=== PATIENT | female | born 1965 | race Caucasian/White ===

== ENCOUNTER 2017-09-10 11:59 | Inpatient (IN) | payer OTHER ==
[~2017-09-10] VITALS: Ht 162.6 cm; Wt 90.7 kg
[~2017-09-10 11:59] MED LIST: ADVAIR 250-501 EACH INH; ESTRADIOL0.5 M1 PO; LEVOTHYROXINE112 MCG PO; MEDROL4 M2 PO; NEXIUM20 M1 PO; PERCOCET 5-3251 EACH PO; PROAIR HFA8.5 GM INH; VALIUM5 M2 PO; ZANTAC 7575 M1 PO
--- NOTE | 2017-09-10 12:33 | ED SKIN/ALLERGY COMPLAINT ---
History of Present Illness General Chief Complaint: Eye Problems Stated Complaint: L EYE SWELLING Source: patient, old records Exam Limitations: no limitations Vital Signs & Intake/Output Vital Signs & Intake/Output Vital Signs Date Time Temp Pulse Resp B/P B/P Pulse O2 O2 Flow FiO2 Mean Ox Delivery Rate 09/10 1458 98.0 58 15 125/75 98 Room Air Room Air 09/10 1218 98.0 79 18 131/84 98 Room Air Allergies Coded Allergies: ammonia (SOB 12/09/16) meperidine (From DEMEROL) (N/V 12/09/16) Reconcile Medications Albuterol Sulfate (Proair Hfa) 90 MCG HFA.AER.AD 2 PUF INH AD PRN ASTHMA ( Reported) Diazepam (Valium) 5 MG TABLET 1 TAB PO Q6P PRN PAIN Esomeprazole Magnesium (Nexium) 20 MG CAPSULE.DR 1 CAP PO DAILY GI (Reported) Estradiol 0.5 MG TABLET 1 TAB PO DAILY HRT (Reported) Fluticasone/Salmeterol (Advair 250-50 Diskus) 250 MCG-50 MCG/DOSE BLST.W.DEV 1 PUF INH DAILY ASTHMA (Reported) Levothyroxine Sodium 112 MCG TABLET 1 TAB PO DAILY THYROID (Reported) Methylprednisolone. (Medrol) 4 MG TAB.DS.PK 1 DP PO AD NEUROPATHIC PAIN 6 on day 1 then reduce by one tablet daily until gone Oxycodone HCl/Acetaminophen (Percocet 5-325 MG Tablet) 5 MG-325 MG TABLET 1-2 TAB PO Q6P PRN PAIN Ranitidine HCl (Zantac 75) 75 MG TABLET 1 TAB PO PRN GI (Reported) Triage Note: MONDAY PT NOTICED A SPOT ON LEFT CHEEK MONDAY WITH CLEAR DRAINAGE. STARTED CLINDA 300MG QID SINCE THEN AND NOW SWELLING IS INCREASING AND CLOSE TO EYE. DENIES CHANGE IN VISION OR HEADACHE. ?PERIORBITAL ABSCESS VS CELLULITIS. EOM INTACT. TENDER TO PALPATION. MD HERNANDEZ CALLED TO TRIAGE FOR ASSESSMENT Triage Nurses Notes Reviewed? yes HPI: 51F PMH asthma, hypothyroidism with left maxillary swelling and erythema for the past 2 days, went to her PCP, has been taking Clindamycin 300mg q8h since the morning of 09/08. Since then, her facial erythema, swelling, and tenderness has worsened and it has creeped toward her left eye. She denies fever, chills, headache, neck stiffness, nausea, vomiting, vision changes, blurry vision, pain with moving her eye, ear pain, chest pain, SOB, abdominal pain. She feels well otherwise ans has no complaints. She initially noticed clear discharge with crusting of the area, no evidence of purulence. No traumatic injury or foreign object. NO similar symptoms before, though she has had zoster of her face and abdomen. Past History Travel History Traveled to [place] past 21 day No Medical History Any Pertinent Medical History? see below for history Neurological: NONE EENT: NONE Cardiovascular: NONE Respiratory: asthma Gastrointestinal: GERD, HIATAL HERNIA Hepatic: NONE Renal: NONE Musculoskeletal: NONE Psychiatric: NONE Endocrine: HYPOTHYROIDISM THYROIDECTOMY Blood Disorders: NONE Cancer(s): NONE Surgical History Surgical History: hysterectomy, Thyroidectomy Tonsilectomy Psychosocial History What is your primary language Yi Tobacco Use: Never used Family History Hx Contributory? No Review of Systems Review of Systems Constitutional: Reports: no symptoms. EENTM: Reports: no symptoms. Respiratory: Reports: no symptoms. Cardiovascular: Reports: no symptoms. GI: Reports: no symptoms. Genitourinary: Reports: no symptoms. Musculoskeletal: Reports: no symptoms. Skin: Reports: no symptoms. Neurological/Psychological: Reports: no symptoms. Hematologic/Endocrine: Reports: no symptoms. Immunologic/Allergic: Reports: no symptoms. All Other Systems: Reviewed and Negative Physical Exam Physical Exam General Appearance: well developed/nourished, no apparent distress Head: atraumatic, normal appearance Eyes: Bilateral: normal appearance, PERRL, EOMI. Ears, Nose, Throat: normal pharynx, hearing grossly normal Neck: normal inspection, supple, full range of motion Respiratory: normal breath sounds Cardiovascular: regular rate/rhythm Gastrointestinal: soft, non-tender Back: normal inspection, normal range of motion Extremities: normal inspection, normal range of motion Neurologic/Psych: awake, alert, oriented x 3, normal mood/affect Skin: left maxillary erythema and swelling with tendernes, no fluctuance Lymphatic: positive left anterior cervical and pre-auricular lymphadenopathy Progress Differential Diagnosis: abscess/cellulitis, allergic reaction, angioedema, contact dermatitis, drug reaction, lyme disease, shingles Plan of Care: Orders Procedure Date/time Status Regular Diet 09/10 D Active BLOOD CULTURE 09/10 1239 Active COMPREHENSIVE METABOLIC PANEL 09/10 1239 Complete CBC WITHOUT DIFFERENTIAL 09/10 1239 Complete Laboratory Tests 09/10/17 1423: Anion Gap 12, Estimated GFR > 60, BUN/Creatinine Ratio 20.0, Glucose 99, Calcium 10.2, Total Bilirubin 0.5, AST 18, ALT 30, Alkaline Phosphatase 101, Total Protein 8.1, Albumin 4.2, Globulin 3.9, Albumin/Globulin Ratio 1.1 09/10/17 1305: CBC w Diff NO MAN DIFF REQ, RBC 5.05, MCV 85.3, MCH 28.6, MCHC 33.5, RDW 15.5 H , MPV 8.1, Gran % 46.4, Lymphocytes % 33.5, Monocytes % 10.2 H, Eosinophils % 8.6 H, Basophils % 1.3, Absolute Granulocytes 2.7, Absolute Lymphocytes 1.9, Absolute Monocytes 0.6, Absolute Eosinophils 0.5, Absolute Basophils 0.1 Microbiology 09/10 1320 BLOOD: Blood Culture - RECD 09/10 1305 BLOOD: Blood Culture - RECD Departure Departure Disposition: STILL A PATIENT Condition: Stable Clinical Impression Primary Impression: Periorbital cellulitis of left eye Secondary Impressions: Failure of outpatient treatment Referrals: Diya SEAY,Anika (PCP/Family) Departure Forms: Customer Survey General Discharge Information Admission Note Spoke With: Torrie SEAY,Renetta Soriano Documentation of Exam: Documentation of any treatments & extenuating circumstances including Concerns Regarding Discharge (functional status, medication knowledge or non-compliance, living conditions, etc.) that warrant an admission rather than observation: julia -orbital cellulitis that failed outpatient Clindamycin, will require inpatient medicine stay for IV antibiotics, cultures, infectious disease and likely ophthalmology consult.
[2017-09-10 13:17] LABS: ABSOLUTE BASOPHIL COUNT 0.1 /CUMM (0.0-0.2); ABSOLUTE EOSINOPHIL COUNT 0.5 /CUMM (0.0-0.7); ABSOLUTE GRANULOCYTE CT 2.7 /CUMM (1.4-6.5); ABSOLUTE LYMPH COUNT 1.9 /CUMM (1.2-3.4); ABSOLUTE MONOCYTE COUNT 0.6 /CUMM (0.10-0.60); BASOPHIL % 1.3 % (0.0-2.0); EOSINOPHIL % 8.6 % (0-5); GRANULOCYTE % 46.4 % (42.2-75.2); HEMATOCRIT 43.1 % (37-47); MEAN CORPUSCULAR HGB 28.6 PG (27.0-31.0); MEAN CORPUSCULAR HGB CONC 33.5 G/DL (33.0-37.0); MEAN CORPUSCULAR VOLUME 85.3 FL (81.0-99.0); MEAN PLATELET VOLUME 8.1 FL (7.4-10.4); PLATELET COUNT 315 /CUMM (130-400); RBC DISTRIBUTION WIDTH 15.5 % (11.5-14.5); RED BLOOD CELL CT 5.05 /CUMM (4.20-5.40); WHITE BLOOD CELL COUNT 5.7 /CUMM (4.8-10.8)
[2017-09-10] MEDS ORDERED: VITAMIN D2000 UNIT PO (15:56)
[2017-09-10] MEDS ORDERED: MULTIVITAMINS1 EAC9 PO (15:56)
--- NOTE | 2017-09-10 16:29 | History & Physical ---
Ricco SEAY,Kirsten 09/10/17 2145: General Information and HPI MD Statement: I have seen and personally examined ILAN SOLANO and documented this H&P. The patient is a 51 year old F who presented with a patient stated chief complaint of [left sided infraorbital cellulitis]. Source of Information: patient Exam Limitations: no limitations History of Present Illness: Patient is a 51-year-old female with past medical history of hypothyroidism status post thyroidectomy (1991, 1997 ), mild persistent asthma, hypovitaminosis D, history of hysterectomy currently having menopausal symptomS including depression, anxiety, hot flashes presented with chief complaints of redness and swelling and left-sided preorbital area since 2 days. According to her she had an episode of diarrhea secondary to food poisoning since last Monday from which she recovered on monday without any antibiotic.She was completely all right on Monday, and she walked/had outing with her dog. On she felt a small blister on the left side of the cheek below the eye, which got ruptured with drainage of clear fluid. Later on she started having swelling redness and tenderness on the left cheek. So she called MD trejo, and was advised to take tablet clindamycin 300 mg every 6. Her swelling did not improved despite of antibiotic and today in the morning she felt that her swelling got worse. Today she again called MD trejo, and was advised to go to ED for further evaluation and management including IV antibiotic. She denies trauma, scratching, spider bite, any application of new facial ointment, removal of hair, fall, narrowing of the lesion, pain while movement of the eye, ear pain. Allergies-Demerol/ammonia leading to severe anaphylactic reaction Personal history-lives with her boyfriend and son, have 1 dog and 2 cats, denies smoking, drink alcohol socially. Family history Father-diabetes, Alzheimer's disease, hypertension, stroke, seizures in the age of 60s Mother-healthy Surgical history- Hysterectomy at the age of 39 secondary to fibroid and bleeding Thyroidectomy-twice() Tonsillectomy is denies Allergies/Medications Allergies: Coded Allergies: ammonia (SOB 12/09/16) meperidine (From DEMEROL) (N/V 12/09/16) Past History Travel History Traveled to [place] past 21 day No Medical History Neurological: NONE EENT: NONE Cardiovascular: NONE Respiratory: asthma Gastrointestinal: GERD, HIATAL HERNIA Hepatic: NONE Renal: NONE Musculoskeletal: NONE Psychiatric: NONE Endocrine: HYPOTHYROIDISM THYROIDECTOMY Blood Disorders: NONE Cancer(s): NONE Surgical History Surgical History: hysterectomy, Thyroidectomy Tonsilectomy Past Family/Social History Family History Relations & Conditions if any FATHER, . Diabetes mellitus (DM) FH: Alzheimers disease FH: HTN (hypertension) MOTHER FATHER Relation not specified for: *No pertinent family history Review of Systems Review of Systems Constitutional: Denies: no symptoms, chills, fever, malaise, weakness. EENTM: Denies: no symptoms, blurred vision, double vision, visual changes, eye pain, eye drainage, eye tearing, ear discharge, ear pain, ear redness, hearing changes. Exam & Diagnostic Data Last 24 Hrs of Vital Signs/I&O Vital Signs Date Time Temp Pulse Resp B/P B/P Pulse O2 O2 Flow FiO2 Mean Ox Delivery Rate 09/10 2124 98.1 56 20 153/65 96 Room Air 09/10 1721 98.2 63 20 158/78 97 Room Air 09/10 1458 98.0 58 15 125/75 98 Room Air Room Air 09/10 1218 98.0 79 18 131/84 98 Room Air Physical Exam General Appearance Alert, Oriented X3, Cooperative, No Acute Distress Skin left upper part of cheek, redness, swelling, tender, a center part was hyperpigmented, regional lymphadenopathy in left submandibular area, HEENT Atraumatic, PERRLA, EOMI Neck Supple, No JVD Cardiovascular Normal S1, Normal S2, No Murmurs Lungs Clear to Auscultation, Normal Air Movement Abdomen Soft, No Tenderness Neurological Normal Speech Extremities No Clubbing, No Cyanosis, No Edema Vascular Normal Pulses, Pulses Symmetrical Last 24 Hrs of Labs/[place]: Laboratory Tests 09/10/17 1423: Anion Gap 12, Estimated GFR > 60, BUN/Creatinine Ratio 20.0, Glucose 99, Calcium 10.2, Total Bilirubin 0.5, AST 18, ALT 30, Alkaline Phosphatase 101, Total Protein 8.1, Albumin 4.2, Globulin 3.9, Albumin/Globulin Ratio 1.1 09/10/17 1305: CBC w Diff NO MAN DIFF REQ, RBC 5.05, MCV 85.3, MCH 28.6, MCHC 33.5, RDW 15.5 H , MPV 8.1, Gran % 46.4, Lymphocytes % 33.5, Monocytes % 10.2 H, Eosinophils % 8.6 H, Basophils % 1.3, Absolute Granulocytes 2.7, Absolute Lymphocytes 1.9, Absolute Monocytes 0.6, Absolute Eosinophils 0.5, Absolute Basophils 0.1 Microbiology 09/10 1320 BLOOD: Blood Culture - RECD 09/10 1305 BLOOD: Blood Culture - RECD Diagnostic Data EKG Results Not done CXR Results Not done Assessment/Plan Assessment: Patient is a 51-year-old female with past medical history of hypothyroidism status post thyroidectomy (1991, 1997 ), mild persistent asthma, hypovitaminosis D, history of hysterectomy currently having menopausal symptomS including depression, anxiety, hot flashes presented with chief complaints of redness and swelling and left-sided preorbital area since 2 days. ED course - Vital signs -temperature 98.0, pulse 79, respiratory 18, blood pressure 139/84, SPO2 98% on room air. Blood workup showed -WBC 5.7, hemoglobin 14.4, hematocrit 43.7, platelet count 315, granulocyte 46.4, monocytes 10.2, eosinophils 8.6, serum sodium 144, potassium 4.3, chloride 104, carbon dioxide 28, anion gap 12, BUN 14, creatinine 0.7, glucose 99, calcium 10.2, AST 18, ALT 30, alkaline phosphatase 101, total protein 8.1, albumin 4.2, globulin 3.9. Assessment and plan - Periorbital cellulitis, secondary to ?Spider bite/insect bite - * We will start patient on injection Unasyn 3 g IV 6 hourly * We will give Tylenol as needed for the pain * If patient symptoms do not get improved, although she started getting pain on eye movements then we will get the CT scan with IV contrast of the orbits and place the ophthalmology consult. Chronic medical conditions -anxiety, depression, hypothyroidism, GERD - * We will continue tablet levothyroxine, omeprazole, multivitamin as before Diet -heart healthy diet DVT prophylaxis -ALPs/heparin CODE STATUS -full code As Ranked By This Provider Problem List: 1. Periorbital cellulitis of left eye Core Measures/Misc (12/25) Acute Coronary Syndrome ACS Diagnosis: No Congestive Heart Failure Congestive Heart Failure Diagnosis No Cerebrovascular Accident CVA/TIA Diagnosis: No VTE (View Protocol) VTE Risk Factors Age>40 No Mechanical VTE Prophylaxis d/t N/A MechProphylax Ordered No VTE Pharm Prophylaxis d/t NA PharmProphylax ordered Sepsis (View protocol) Sepsis Present: No If YES complete Sepsis Event Note If YES complete Sepsis Event Note Torrie SEAY,Renetta 09/10/17 9231: General Information and HPI Allergies/Medications Home Med list Albuterol Sulfate (Proair Hfa) 90 MCG HFA.AER.AD 2 PUF INH Q4 HRS NEEDED PRN ASTHMA (Reported) Cholecalciferol (Vitamin D3) (Vitamin D) 2,000 UNIT CAPSULE 1,000 UNITS PO DAILY HYPOVITAMINOSIS D (Reported) Esomeprazole Magnesium (Nexium) 20 MG CAPSULE.DR 1 CAP PO DAILY GI (Reported) Fluticasone/Salmeterol (Advair 250-50 Diskus) 250 MCG-50 MCG/DOSE BLST.W.DEV 1 PUF INH DAILY ASTHMA (Reported) Levothyroxine Sodium 112 MCG TABLET 1 TAB PO DAILY THYROID (Reported) Multiple Vitamin (Multivitamins) 1 EACH TABLET 1 TAB PO DAILY SUPPLEMENT ( Reported) Core Measures/Misc (12/25) Sepsis (View protocol) If YES complete Sepsis Event Note If YES complete Sepsis Event Note Attending MD Review Statement Attending Statement Attending MD Statement: examined this patient, discuss w/resident/PA/ENDOSCOPY TECHNICIAN, agreed w/resident/PA/ENDOSCOPY TECHNICIAN, reviewed EMR data (avail), discussed with nursing, reviewed images Attending Assessment/Plan: 51 year old female with PMH asthma and hypothyroidism, here with facial cellulitis having failed outpt oral abx. Lesion started on left cheek with clear drainage and progressed despite oral Clindamycin. No proptosis, no pain on eye movements or restriction of extraocular movement. All signs and features consistent with periorbital/preseptal cellulitis. Will treat with IV Unsayn, watch closely, continue outpt meds. If syx change then will get CT with IV contrast of orbits. DVT prophylaxis and f/u.
--- NOTE | 2017-09-10 18:05 | Admission Certification ---
Admission Certification Certification Statement - As attending physician, I certify that at the time of - admission, based on clinical presentation, severity of - symptoms, need for further diagnostic testing and - therapeutic interventions, and risk of adverse outcomes - without in-hospital treatment, in my clinical assessment, - this patient requires an acute hospital stay for a minimum - of two nights or longer. I have also considered psychsocial - factors such as support system, advanced age, financial - issues, cognitive issues, and failed out-patient treatments, - past re-admission history, safety of patient, and lack of - compliance as applicable. Specific rationale supporting this admission is: Facial cellulitis, failed outpt oral abx
[2017-09-11 06:00] LABS: ABSOLUTE BASOPHIL COUNT 0 /CUMM (0.0-0.2); ABSOLUTE EOSINOPHIL COUNT 0.6 /CUMM (0.0-0.7); ABSOLUTE GRANULOCYTE CT 2.4 /CUMM (1.4-6.5); ABSOLUTE MONOCYTE COUNT 0.5 /CUMM (0.10-0.60); BASOPHIL % 0.8 % (0.0-2.0); EOSINOPHIL % 10.6 % (0-5); HEMATOCRIT 39.1 % (37-47); MEAN CORPUSCULAR HGB 28.3 PG (27.0-31.0); MEAN CORPUSCULAR HGB CONC 32.9 G/DL (33.0-37.0); MEAN CORPUSCULAR VOLUME 85.9 FL (81.0-99.0); MEAN PLATELET VOLUME 7.4 FL (7.4-10.4); PLATELET COUNT 322 /CUMM (130-400); RBC DISTRIBUTION WIDTH 15.5 % (11.5-14.5); RED BLOOD CELL CT 4.55 /CUMM (4.20-5.40); WHITE BLOOD CELL COUNT 5.6 /CUMM (4.8-10.8)
--- NOTE | 2017-09-11 07:13 | PN- Housestaff ---
Subjective Follow-up For: Periorbital cellulitis Subjective: Patient reports an increase in swelling since yesterday. She denies photophobia, eye pain, blurry vision, nausea, vomiting or JENKINS. Review of Systems Constitutional: Reports: see HPI. Objective Last 24 Hrs of Vital Signs/I&O Vital Signs Date Time Temp Pulse Resp B/P B/P Pulse O2 O2 Flow FiO2 Mean Ox Delivery Rate 09/11 1155 98.0 73 16 128/63 98 Room Air 09/11 0538 95.7 65 18 132/64 95 Room Air 09/10 2124 98.1 56 20 153/65 96 Room Air 09/10 1721 98.2 63 20 158/78 97 Room Air Intake & Output 09/11 1600 09/11 0800 09/11 0000 Intake Total 730 100 Output Total Balance 730 100 Intake, IV 170 100 Intake, Oral 560 Patient 200 lb Weight Physical Exam General Appearance: Alert, Oriented X3, Cooperative, No Acute Distress HEENT: Left p eriorbital eye swelling, with decreased sensation, bulla upper maxillary area, skin erythema Cardiovascular: Regular Rate, Normal S1, Normal S2 Lungs: Clear to Auscultation, Normal Air Movement Abdomen: Normal Bowel Sounds, Soft, No Tenderness Current Medications: Current Medications Sig/Jessica Start time Last Medication Dose Route Stop Time Status Admin Albuterol Sulfate 2 PUF Q4 HRS NEEDED PRN 09/10 1700 AC INH Ampicillin Sodium/ 0 .STK-MED ONE 09/11 0204 DC Sulbactam Sodium .ROUTE Ampicillin Sodium/ 0 .STK-MED ONE 09/10 1953 DC Sulbactam Sodium .ROUTE Ampicillin Sodium/ 3,000 MG Q6H 09/10 1930 AC 09/11 Sulbactam Sodium IV 1438 Sodium Chloride 100 ML Budesonide/ 2 PUF BID 09/10 2100 DC Formoterol Fumarate INH Cholecalciferol 1,000 IU DAILY 09/10 1650 AC 09/11 PO 0930 Heparin Sodium 5,000 UNIT Q8 09/11 1400 AC 09/11 (Porcine) SC 1438 Hydroxyzine HCl 10 MG TID 09/10 1704 AC 09/11 PO 1438 Levothyroxine Sodium 0.112 MG DAILY AC 09/11 0700 AC 09/11 PO 0633 Multivitamins 1 TAB DAILY 09/11 0900 AC 09/11 Therapeutic PO 0930 Non-Formulary 0 SEE ADMIN CRITERIA 09/11 1500 UNVr Medication ANY Omeprazole 20 MG DAILY AC 09/11 0700 AC 09/11 PO 0633 Omeprazole 0 .STK-MED ONE 09/11 0537 DC PO Last 24 Hrs of Lab/[place] Results Last 24 Hrs of Labs/Mics: Laboratory Tests 09/11/17 0554: Anion Gap 9, Estimated GFR > 60, BUN/Creatinine Ratio 21.4, CBC w Diff NO MAN DIFF REQ, RBC 4.55, MCV 85.9, MCH 28.3, MCHC 32.9 L, RDW 15.5 H, MPV 7.4, Gran % 43.0, Lymphocytes % 36.0, Monocytes % 9.6 H, Eosinophils % 10.6 H, Basophils % 0.8, Absolute Granulocytes 2.4, Absolute Lymphocytes 2.0, Absolute Monocytes 0.5, Absolute Eosinophils 0.6, Absolute Basophils 0 Assessment/Plan Assessment: Ms. Zuniga is a 51-year-old female with past medical history of hypothyroidism status post thyroidectomy (1991, 1997), mild persistent asthma, hypovitaminosis D, history of hysterectomy currently having menopausal symptomS including depression, anxiety, hot flashes presented with chief complaints of redness and swelling and left-sided preorbital area since 2 days after failing outpatient Clindamycin that was prescribed to her for suspected impetigo #Periorbital cellulitis #Outpatient antibiotic failure Plan: CT orbit consistent with periorbital cellulitis ID consult Continue IV Unasyn TRC/nebs PRN Will consider opthamology if symptoms worsen DVT ppx: ALPS, lovenox CodeL Full Problem List: 1. Periorbital cellulitis of left eye 2. Failure of outpatient treatment Pain Ratin Pain Location: L eye Pain Goal: Remain pain free Pain Plan: Tylenol Tomorrow's Labs & Rationales: none
[2017-09-11 11:55] VITALS: BP 128/63
--- NOTE | 2017-09-11 13:31 | PN- Att Addend ---
Attending Addendum Attending Brief Note Patient seen and examined, claims that she is not feeling better. The left eye periorbital cellulitis is worse according to the patient as it feels to be more swollen. Denies any problem with vision. Vital Signs Date Time Temp Pulse Resp B/P B/P Pulse O2 O2 Flow FiO2 Mean Ox Delivery Rate 09/11 1155 98.0 73 16 128/63 98 Room Air 09/11 0538 95.7 65 18 132/64 95 Room Air 09/10 2124 98.1 56 20 153/65 96 Room Air 09/10 1721 98.2 63 20 158/78 97 Room Air 09/10 1458 98.0 58 15 125/75 98 Room Air Room Air on exam; aox3, nad. heent; + swolleing and erythema under left eye. + Pupillary reflex. LACEY b/l cv; s1,s2 rrr resp: clear abd; soft, nt, bs+ ext; no edema Laboratory Tests 09/11 09/10 0554 1423 Chemistry Sodium (137 - 145 mmol/L) 142 144 Potassium (3.5 - 5.1 mmol/L) 4.5 4.3 Chloride (98 - 107 mmol/L) 106 104 Carbon Dioxide (22 - 30 mmol/L) 26 28 Anion Gap (5 - 16) 9 12 BUN (7 - 17 mg/dL) 15 14 Creatinine (0.5 - 1.0 mg/dL) 0.7 0.7 Estimated GFR (>60 ml/min) > 60 > 60 BUN/Creatinine Ratio (7 - 25 %) 21.4 20.0 Glucose (65 - 99 mg/dL) 99 Calcium (8.4 - 10.2 mg/dL) 10.2 Total Bilirubin (0.2 - 1.3 mg/dL) 0.5 AST (14 - 36 U/L) 18 ALT (9 - 52 U/L) 30 Alkaline Phosphatase (<127 U/L) 101 Total Protein (6.3 - 8.2 g/dL) 8.1 Albumin (3.5 - 5.0 g/dL) 4.2 Globulin (1.9 - 4.2 gm/dL) 3.9 Albumin/Globulin Ratio (1.1 - 2.2 %) 1.1 Hematology CBC w Diff NO MAN DIFF REQ WBC (4.8 - 10.8 /CUMM) 5.6 RBC (4.20 - 5.40 /CUMM) 4.55 Hgb (12.0 - 16.0 G/DL) 12.9 Hct (37 - 47 %) 39.1 MCV (81.0 - 99.0 FL) 85.9 MCH (27.0 - 31.0 PG) 28.3 MCHC (33.0 - 37.0 G/DL) 32.9 L RDW (11.5 - 14.5 %) 15.5 H Plt Count (130 - 400 /CUMM) 322 MPV (7.4 - 10.4 FL) 7.4 Gran % (42.2 - 75.2 %) 43.0 Lymphocytes % (20.5 - 51.1 %) 36.0 Monocytes % (1.7 - 9.3 %) 9.6 H Eosinophils % (0 - 5 %) 10.6 H Basophils % (0.0 - 2.0 %) 0.8 Absolute Granulocytes (1.4 - 6.5 /CUMM) 2.4 Absolute Lymphocytes (1.2 - 3.4 /CUMM) 2.0 Absolute Monocytes (0.10 - 0.60 /CUMM) 0.5 Absolute Eosinophils (0.0 - 0.7 /CUMM) 0.6 Absolute Basophils (0.0 - 0.2 /CUMM) 0 A/P: 51 y/o F with pmh sig for hypothyroidism status post thyroidectomy (1991, 1997 ), mild persistent asthma, hypovitaminosis D admitted with left-sided facial/periorbital cellulitis. We'll get a CAT scan to make sure there is no orbital competent to cellulitis. We'll obtain ID consult as according to the patient and housestaff this seems to be worse. Before cultures are negative. Patient has received clindamycin as an outpatient 7 doses which she failed and currently on Unasyn. Continue the current management. Patient on heparin subcutaneous for DVT prophylaxis.
--- NOTE | 2017-09-11 14:08 | CT SCAN REPORT ---
EXAMINATION: CT ORBIT WITH CONTRAST CLINICAL INFORMATION: Preorbital swelling and erythema. COMPARISON: None TECHNIQUE: Multidetector helical imaging was performed in the axial plane following intravenous administration of 94 mL of Optiray 320. DLP: 200.06 mGy-cm FINDINGS: Left-sided facial subcutaneous inflammatory changes are noted with mildly reactive adenopathy in the left parotid gland. Subconjunctival fluid is visible with preseptal cellulitic changes on the left side. No drainable fluid collection is seen. No post septal inflammatory process is identified. The extraocular muscles, optic nerve sheath complexes, and lacrimal glands are normal. The globes are symmetric. The cavernous sinuses are symmetric in appearance. The visualized portions of the intracranial vasculature at the level of the elem of [place] appear normal. The imaged portions of the brain are unremarkable. There is a leftward nasal septal deviation. Small retention cysts noted in the right sphenoid sinus cavity. Mild mucosal thickening is visible in the ethmoid sinus air cells. IMPRESSION: Left facial and left periorbital cellulitis. No drainable fluid collection. No retrobulbar inflammatory changes of the left orbit.
--- NOTE | 2017-09-11 15:57 | Cons- Infect Disease ---
General Information and HPI Consulting Request Date of Consult: 09/11/17 Requested By: Vivi Fermin MD Reason for Consult: Rule out left periorbital cellulitis Source of Information: patient History of Present Illness: This is a 51-year-old woman with a history of hypothyroidism, asthma and shingles involving the left flank and periorbital area, who developed a blister on her left cheek 3 days prior to admission, which drained clear fluid, begun on Clindamycin 2 days prior to admission because of mild tenderness and erythema in this area, admitted on September 10 after presenting to the emergency room with increasing swelling in the left periorbital area, with no significant pain, pruritus, fevers or chills. On admission she was afebrile. Laboratory data revealed a white blood cell count of 6000, BUN/creatinine 14 and 0.7, with normal liver enzymes. She was begun on Unasyn and has remained afebrile. A CT of the orbits obtained today reveals left facial and left periorbital cellulitis , with no drainable fluid collection. She denies any trauma or insect bites. She has not changed any of her makeup or detergents. Allergies/Medications Allergies: Coded Allergies: ammonia (SOB 12/09/16) meperidine (From DEMEROL) (N/V 12/09/16) Home Med List: Albuterol Sulfate (Proair Hfa) 90 MCG HFA.AER.AD 2 PUF INH Q4 HRS NEEDED PRN ASTHMA (Reported) Cholecalciferol (Vitamin D3) (Vitamin D) 2,000 UNIT CAPSULE 1,000 UNITS PO DAILY HYPOVITAMINOSIS D (Reported) Esomeprazole Magnesium (Nexium) 20 MG CAPSULE.DR 1 CAP PO DAILY GI (Reported) Fluticasone/Salmeterol (Advair 250-50 Diskus) 250 MCG-50 MCG/DOSE BLST.W.DEV 1 PUF INH DAILY ASTHMA (Reported) Levothyroxine Sodium 112 MCG TABLET 1 TAB PO DAILY THYROID (Reported) Multiple Vitamin (Multivitamins) 1 EACH TABLET 1 TAB PO DAILY SUPPLEMENT ( Reported) Past History Travel History Traveled to [place] past 21 day No Medical History Neurological: NONE EENT: NONE Cardiovascular: NONE Respiratory: asthma Gastrointestinal: GERD, HIATAL HERNIA Hepatic: NONE Renal: NONE Musculoskeletal: NONE Psychiatric: NONE Endocrine: HYPOTHYROIDISM THYROIDECTOMY Blood Disorders: NONE Cancer(s): NONE Other Medical Hx: Shingles involving the left thorax and periorbital area in the past History of MRSA: No History of VRE: No History of CDIFF: No Isolation History: Standard Surgical History Surgical History: hysterectomy, Thyroidectomy Tonsilectomy Family History Relations & Conditions If Any: FATHER, . Diabetes mellitus (DM) FH: Alzheimers disease FH: HTN (hypertension) MOTHER FATHER Relation not specified for: *No pertinent family history Psychosocial History Where Do You Live? Home Services at Home: None Smoking Status: Never Smoked Review of Systems Review of Systems All Other Systems: Reviewed and Negative Exam & Diagnostic Data Last 24 Hrs of Vital Signs/I&O Vital Signs Date Time Temp Pulse Resp B/P B/P Pulse O2 O2 Flow FiO2 Mean Ox Delivery Rate 09/11 1524 98.2 73 18 124/57 96 Room Air 09/11 1155 98.0 73 16 128/63 98 Room Air 09/11 0538 95.7 65 18 132/64 95 Room Air 09/10 2124 98.1 56 20 153/65 96 Room Air 09/10 1721 98.2 63 20 158/78 97 Room Air Intake & Output 09/11 1600 09/11 0800 09/11 0000 Intake Total 730 100 Output Total Balance 730 100 Intake, IV 170 100 Intake, Oral 560 Patient 200 lb Weight Physical Exam Other Physical Findings: She is awake and alert in no acute distress. She is afebrile. Skin reveals a crusted lesion over her left cheek, with several scattered papules towards her left ear, with no surrounding erythema. HEENT exam left periorbital edema, with no proptosis, conjunctival injection or limitation to her eye movements. Neck is supple with no adenopathy. Lungs are clear. Heart regular rhythm with no murmur. Abdomen is soft, nontender with positive bowel sounds. Back no CVA tenderness. Extremities no cyanosis, clubbing or edema. Neuro is without focality. Last 24 Hours of Lab Results: Laboratory Tests 09/11 0554 Chemistry Sodium (137 - 145 mmol/L) 142 Potassium (3.5 - 5.1 mmol/L) 4.5 Chloride (98 - 107 mmol/L) 106 Carbon Dioxide (22 - 30 mmol/L) 26 Anion Gap (5 - 16) 9 BUN (7 - 17 mg/dL) 15 Creatinine (0.5 - 1.0 mg/dL) 0.7 Estimated GFR (>60 ml/min) > 60 BUN/Creatinine Ratio (7 - 25 %) 21.4 Hematology CBC w Diff NO MAN DIFF REQ WBC (4.8 - 10.8 /CUMM) 5.6 RBC (4.20 - 5.40 /CUMM) 4.55 Hgb (12.0 - 16.0 G/DL) 12.9 Hct (37 - 47 %) 39.1 MCV (81.0 - 99.0 FL) 85.9 MCH (27.0 - 31.0 PG) 28.3 MCHC (33.0 - 37.0 G/DL) 32.9 L RDW (11.5 - 14.5 %) 15.5 H Plt Count (130 - 400 /CUMM) 322 MPV (7.4 - 10.4 FL) 7.4 Gran % (42.2 - 75.2 %) 43.0 Lymphocytes % (20.5 - 51.1 %) 36.0 Monocytes % (1.7 - 9.3 %) 9.6 H Eosinophils % (0 - 5 %) 10.6 H Basophils % (0.0 - 2.0 %) 0.8 Absolute Granulocytes (1.4 - 6.5 /CUMM) 2.4 Absolute Lymphocytes (1.2 - 3.4 /CUMM) 2.0 Absolute Monocytes (0.10 - 0.60 /CUMM) 0.5 Absolute Eosinophils (0.0 - 0.7 /CUMM) 0.6 Absolute Basophils (0.0 - 0.2 /CUMM) 0 Last 24 Hours of [place] Results: Blood cultures 2 September 10 negative Diagnostic Data Recent Imaging Findings: CT of the orbits September 11 reveals left-sided facial subcutaneous inflammatory changes with subconjunctival fluid and preseptal cellulitic changes on the left, with no drainable fluid collections. Assessment/Plan Assessment/Plan Impression: This is a 51-year-old woman with a history of shingles involving the left flank and periorbital area, who developed a blister on her left cheek 3 days prior to admission, which drained clear fluid, admitted on September 10 with increasing swelling in the left periorbital area despite 2 days of Clindamycin, with no significant pain, pruritus, fevers or chills, found to be afebrile with a normal white blood cell count and with a CT of the orbits consistent with a left facial /left periorbital cellulitis. Given the absence of any fever or leukocytosis I am not convinced that she has a periorbital cellulitis. The cheek lesion appears crusted and, with a history of a "blister" with clear drainage and with several additional papular lesions, feel that this may represent Herpes zoster ophthalmicus, particularly given her history of previous episodes of shingles. It is now approximately 96 hours since the onset of her lesion; therefore there is likely no benefit of antiviral therapy. As she appears stable, with no erythema to suggest a secondary cellulitis and, with her temperatures and white blood cell count normal, feel that she can be followed off antibiotics. Suggestion: 1. Symptomatic treatment for any periorbital discomfort 2. Discontinue Unasyn and follow off antibiotics Consult Acknowledgment - Thank you for your consult request.
[2017-09-11 19:00] VITALS: BP 138/98
[2017-09-11 22:37] VITALS: BP 153/87
[2017-09-12 06:59] VITALS: BP 128/70
--- NOTE | 2017-09-12 07:25 | Patient Discharge Instructions ---
Discharge Instructions General Discharge Information You were seen/treated for: erythematous skin changes on the left, infraorbital area possible zoster rash Special Instructions: Please follow-up with your PCP within a week of discharge Please discuss with your PCP for prophylaxis of zoster Diet Recommended Diet: Low Fat Acute Coronary Syndrome Inclusion Criteria At DC or during hospital stay patient has or had the following: ACS DIAGNOSIS No Discharge Core Measures Meds if any: Prescribed or Continued at Discharge Meds if any: NOT Prescribed or Continued at Discharge Congestive Heart Failure Inclusion Criteria At DC or during hospital stay patient has or had the following: CHF DIAGNOSIS No Discharge Core Measures Meds if any: Prescribed or Continued at Discharge Meds if any: NOT Prescribed or Continued at Discharge Cerebrovascular accident Inclusion Criteria At DC or during hospital stay patient has or had the following: CVA/TIA Diagnosis No Discharge Core Measures Meds if any: Prescribed or Continued at Discharge Meds if any: NOT Prescribed or Continued at Discharge Venous thromboembolism Inclusion Criteria VTE Diagnosis No VTE Type NONE VTE Confirmed by (Test) NONE Discharge Core Measures - Per Current guidelines, there needs to be overlap - treatment for the first 5 days of Warfarin therapy. - If discharged on Warfarin prior to 5 days of - overlap therapy, the patient will need to be - assessed for post discharge needs including - *Post discharge parental anticoagulation - *Warfarin and/or parental anticoagulation education - *Follow up date to check INR post discharge At least 5 days overlap therapy as Inpatient No Meds if any: Prescribed or Continued at Discharge Note: Overlap Therapy is Warfarin and Anticoagulant Meds if any: NOT Prescribed or Continued at Discharge
--- NOTE | 2017-09-12 08:37 | PN- Housestaff ---
Dea Jorge 09/12/17 0837: Subjective Follow-up For: ?Periorbital cellulitis vs ?Herpes Zoster opthalmalicus Subjective: Patient reports 4 episodes of diarrhea. Denies abdomial pain, lightheadedness, nausea, vomiting, photophobia, blurry vision Review of Systems Constitutional: Reports: see HPI. Objective Last 24 Hrs of Vital Signs/I&O Vital Signs Date Time Temp Pulse Resp B/P B/P Pulse O2 O2 Flow FiO2 Mean Ox Delivery Rate 09/12 0659 97.6 69 18 128/70 96 / 2237 97.9 71 20 153/87 96 Room Air / 1900 98.4 70 20 138/98 96 Room Air / 1830 141/71 09/11 1819 98.5 75 18 126/58 97 Room Air Room Air 09/11 1524 98.2 73 18 124/57 96 Room Air / 1155 98.0 73 16 128/63 98 Room Air Intake & Output 09/12 1600 09/12 0800 06 0000 Intake Total 480 Output Total Balance 480 Intake, Oral 480 Physical Exam General Appearance: Alert, Oriented X3, Cooperative, No Acute Distress HEENT: Periorbital swelling and upper maxillary skin crusting Cardiovascular: Regular Rate, Normal S1, Normal S2 Lungs: Clear to Auscultation, Normal Air Movement Abdomen: Normal Bowel Sounds, Soft, No Tenderness Current Medications: Current Medications Sig/Jessica Start time Last Medication Dose Route Stop Time Status Admin Albuterol Sulfate 2 PUF Q4 HRS NEEDED PRN 09/10 1700 AC INH Ampicillin Sodium/ 3,000 MG Q6H 09/10 1930 DC 09/11 Sulbactam Sodium IV 1438 Sodium Chloride 100 ML Budesonide/ 2 PUF BID 09/10 2100 DC Formoterol Fumarate INH Cholecalciferol 1,000 IU DAILY 09/10 1650 AC 09/11 PO 0930 Heparin Sodium 5,000 UNIT Q8 09/11 1400 AC 09/11 (Porcine) SC 1438 Hydroxyzine HCl 10 MG TID 09/10 1704 AC 09/12 PO 0834 Levothyroxine Sodium 0.112 MG DAILY AC 09/11 0700 AC 09/12 PO 0833 Multivitamins 1 TAB DAILY 09/11 0900 AC 09/11 Therapeutic PO 0930 Omeprazole 20 MG DAILY AC 09/11 0700 AC 09/12 PO 0833 Last 24 Hrs of Lab/[place] Results Last 24 Hrs of Labs/Mics: Microbiology 09/12 0838 STOOL: Clostridium difficile Toxin A & B - ORD Assessment/Plan Assessment: Ms. Zuniga is a 51-year-old female with past medical history of hypothyroidism status post thyroidectomy (1991, 1997), mild persistent asthma, hypovitaminosis D, history of hysterectomy currently having menopausal symptomS including depression, anxiety, hot flashes presented with chief complaints of redness and swelling and left-sided preorbital area since 2 days after failing outpatient Clindamycin that was prescribed to her for suspected impetigo #?Periorbital cellulitis vs ?Herpes Zoster opthalmalicus #Outpatient antibiotic failure Plan: Obtain C.difficile for diarrhea CT orbit consistent with periorbital cellulitis Follow off antibiotics as per ID Discontinue IV Unasyn TRC/nebs PRN Will consider opthamology if symptoms worsen DVT ppx: ALPS, lovenox Code: Full Dispo: Home Problem List: 1. Failure of outpatient treatment 2. Periorbital cellulitis of left eye Pain Ratin Pain Location: NA Pain Goal: Remain pain free Pain Plan: NA Tomorrow's Labs & Rationales: NONE Cheko Fermin MDesha 09/12/17 1312: Attending MD Review Statement Attending Statement Attending MD Statement: examined this patient, discuss w/resident/PA/GAS BURNER OPERATOR, agreed w/resident/PA/GAS BURNER OPERATOR, reviewed EMR data (avail), discussed with nursing, discussed with case mgmt, reviewed images, amended to note Attending Assessment/Plan: Patient seen and examined, doing the same almost. Patient was seen by infectious disease yesterday and they did not think that this was a true cellulitis but rather it was most likely a case of herpes zoster. Antibiotics have been discontinued. There is some crusting at the site of the rash which is under her left eye. CAT scan was negative for any orbital involvement or any post septal involvement. Patient had remained afebrile and her white count had remained normal. Patient now has diarrhea. Stool for C. difficile will be sent. Plan is to watch her off of antibiotics. Because of the fact that her symptoms started more than 72 hours ago, as discussed with infectious disease there is no role for anti-viral agents in terms of benefits. If stool for C. difficile, negative and patient can be discharged home on her home medications. She will not be continued on any antibiotics and no antivirals were started. Patient should follow-up with her primary care doctor as an outpatient.
--- NOTE | 2017-09-12 11:41 | PN- Infect Dx ---
Subjective Subjective: Afebrile. She has had 5 loose stools this morning, with no nausea, vomiting or abdominal pain. Objective Last 24 Hrs of Vital Signs/I&O Vital Signs Date Time Temp Pulse Resp B/P B/P Pulse O2 O2 Flow FiO2 Mean Ox Delivery Rate 09/12 0659 97.6 69 18 128/70 96 / 2237 97.9 71 20 153/87 96 Room Air 09/11 1900 98.4 70 20 138/98 96 Room Air 09/11 1830 141/71 09/11 1819 98.5 75 18 126/58 97 Room Air Room Air 09/11 1524 98.2 73 18 124/57 96 Room Air 09/11 1155 98.0 73 16 128/63 98 Room Air Intake & Output 09/12 1600 09/12 0800 09/12 0000 Intake Total 480 Output Total Balance 480 Intake, Oral 480 Physical Exam Other Physical Findings: She appears comfortable in no acute distress HEENT crusted lesion on the left upper cheek, with no surrounding erythema; slight decrease in the left periorbital edema, with no conjunctival irritation or limitation to eye movements; several isolated papular lesions on the left and right cheeks Results Last 24 Hours of Lab Results: No labs from today Last 24 Hours of [place] Results: Blood cultures 2 September 10 negative Stool C. difficile September 12 pending Assessment/Plan ID Impression: Left cheek crusted lesion, most likely secondary to herpes zoster, with secondary periorbital edema. In the absence of any tenderness, fever or leukocytosis feel that a periorbital cellulitis is less likely and that she can continue to be followed off antibiotics. Her recent diarrhea may be antibiotic related and a C. difficile has been sent. Suggestion: 1. Follow-up stool for C. difficile 2. Continue to follow off antibiotics
--- NOTE | 2017-09-12 13:45 | Discharge Summary ---
Visit Information Visit Dates Admission Date: 09/10/17 Discharge Date: 09/12/17 Hospital Course Course Attending Physician: Vivi Fermin MD Primary Care Physician: Diya SEAY,[facility] Course: Ms. Zuniga is a 51-year-old female with past medical history of hypothyroidism status post thyroidectomy (1991, 1997), mild persistent asthma, hypovitaminosis D, history of hysterectomy currently having menopausal symptomS including depression, anxiety, hot flashes presented with chief complaints of redness and swelling and left-sided preorbital area since 2 days after failing outpatient Clindamycin that was prescribed to her for suspected impetigo. 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 CT orbit findings were consistent with periorbital cellulitis. We consulted ID after no improvement while on antibiotics. IV Unasyn was discontinued and she was watched off antibiotics. Her periorbital swelling slight improved but her surrounding skin began to crust more consistenet with herpes zoster and given her previous history of herpes zoster of the face. During her stay there was a concern for C.difficile due to multiple episodes of diarrhea but C.difficile toxin was negative. She was discharged home and advised to follow up with her PCP. Allergies: Coded Allergies: ammonia (SOB 12/09/16) meperidine (From DEMEROL) (N/V 12/09/16) Pertinent Lab Results: 09/11/17-1100 EXAM TYPE: CAT - CT ORBITS W IV CONTRAST FINDINGS: Left-sided facial subcutaneous inflammatory changes are noted with mildly reactive adenopathy in the left parotid gland. Subconjunctival fluid is visible with preseptal cellulitic changes on the left side. No drainable fluid collection is seen. No post septal inflammatory process is identified. The extraocular muscles, optic nerve sheath complexes, and lacrimal glands are normal. The globes are symmetric. The cavernous sinuses are symmetric in appearance. The visualized portions of the intracranial vasculature at the level of the [place] appear normal. The imaged portions of the brain are unremarkable. There is a leftward nasal septal deviation. Small retention cysts noted in the right sphenoid sinus cavity. Mild mucosal thickening is visible in the ethmoid sinus air cells. IMPRESSION: Left facial and left periorbital cellulitis. No drainable fluid collection. No retrobulbar inflammatory changes of the left orbit. Disposition Summary Disposition Principal Diagnosis: Herpes zoster opthalmalicus Additional Diagnosis: Possible periorbital cellulitis Discharge Disposition: home or self care Discharge Instructions General Discharge Information Code Status: Full Code Patient's Diet: Regular Patient's Activity: Full Follow-Up Instructions/Appts: Please follow-up with your PCP within a week of discharge Please discuss with your PCP for prophylaxis of zoster Medications at Discharge Discharge Medications: Continue taking these medications: Levothyroxine Sodium (Levothyroxine Sodium) 112 MCG TABLET 1 Tablet ORAL DAILY Qty = 90 Comments: Last Taken:09/12/17 Time:08:33 AM Fluticasone/Salmeterol (Advair 250-50 Diskus) 250 MCG-50 MCG/DOSE BLST.W.DEV 1 Puff Inhale through mouth DAILY Qty = 60 Comments: Last Taken:09/12/17 Time:08:34 Esomeprazole Magnesium (Nexium) 20 MG CAPSULE.DR 1 Capsule ORAL DAILY Comments: PRILOSEC GIVEN IN HOSPITAL Last Taken:09/12/17 Time:08:33 AM Albuterol Sulfate (Proair Hfa) 90 MCG HFA.AER.AD 2 Puff Inhale through mouth EVERY 4 HOURS NEEDED as needed for ASTHMA Comments: NOT GIVEN IN HOSPITAL Multiple Vitamin (Multivitamins) 1 EACH TABLET 1 Tablet ORAL DAILY Comments: Last Taken:09/12/17 Time:1:22 PM Cholecalciferol (Vitamin D3) (Vitamin D) 2,000 UNIT CAPSULE 1,000 Units ORAL DAILY Qty = 30 Comments: Last Taken:09/12/17 Time:1:22 PM Copies To: Diya SEAY,Anika; [place] SEAY,Gabriel Contreras
[2017-09-12 14:43] VITALS: BP 130/70
== END 2017-09-12 16:00 | DRG 596 ==
LOC: ERH 11:59 → ERHI 15:01 → ENTRNSPT 09-11 18:19 → EDTRNSPTSTS 09-11 18:26 → EDTRNSPT 09-11 18:26 → 2NB 09-11 18:34 → CMPTRNSPT 09-11 18:41 → ENPENDDIS 09-12 13:48 → 2NB 09-12 16:00
PROVIDERS: Internal Medicine; Internal Medicine Adolescent Medicine
DX: B02.9 Zoster without complications (principal); R60.1 Generalized edema; E03.9 Hypothyroidism, unspecified; J45.30 Mild persistent asthma, uncomplicated; E55.9 Vitamin D deficiency, unspecified; F32.9 Major depressive disorder, single episode, unspecified; F41.9 Anxiety disorder, unspecified; K21.9 Gastro-esophageal reflux disease without esophagitis; K44.9 Diaphragmatic hernia without obstruction or gangrene
CPT/HCPCS: 2NBSP; ERO; 82436; 87040; J1644; J3490